=== PATIENT | female | born 1980 | race Caucasian/White ===

== ENCOUNTER 2023-11-24 12:49 | Outpatient (OUT) | payer OTHER, SELFPAY ==
--- NOTE | 2023-11-24 12:53 | MM_ITS ---
Patient Name: YENNIFER DUBOSE MR#: [id number] : 1980 Exam Date: 11/24/2023 Ordering Doctor: DR GUILLERMO NEAL RADIOLOGY REPORT PROCEDURE: MM TOMOSYNTHESIS SCREENING BI COMPARISON: None. INDICATIONS: Screening Calculator Name NCI Breast Cancer Risk Assessment Tool 5 Year Breast Cancer Risk 0.80% Lifetime Breast Cancer Risk 13.50% Personal Breast Cancer No Personal Ovarian Cancer No Treatments None Family Cancers None LOCATION: [facility] BREAST COMPOSITION: Heterogeneously dense,which may obscure small masses. FINDINGS: DIAGNOSTIC CATEGORY 0--INCOMPLETE: NEED ADDITIONAL IMAGING EVALUATION. Breasts are medium in size.Scattered benign-appearing calcifications are present. Scattered benign-appearing lymph nodes are present. RIGHT BREAST: No significant suspicious finding. LEFT BREAST: 1.6 x 1.3 cm lobular circumscribed mass identified in the lower inner quadrant of the left posterior breast. Spot compression and ultrasound follow-up is recommended for further evaluation. RECOMMENDATIONS: ADDITIONAL MAMMOGRAPHIC VIEWS REQUIRED: LEFT BREAST - compression ULTRASOUND: LEFT BREAST PLEASE NOTE: A NORMAL MAMMOGRAM DOES NOT EXCLUDE THE POSSIBILITY OF BREAST CANCER. A CLINICALLY SUSPICIOUS PALPABLE LUMP SHOULD BE BIOPSIED. Dictated by: Pal Richards MD on 11/24/2023 at 15:02 Approved by: Pal Richards MD on 11/24/2023 at 15:04
== END 2023-11-24 12:50 | disposition home or self-care (01) ==
LOC: MAMMO 12:49
PROVIDERS: PCP Physician Assistant; Visit Provider Physician Assistant
DX: Z12.31 Encounter for screening mammogram for malignant neoplasm of breast (principal); N63.24 Unspecified lump in the left breast, lower inner quadrant
CPT/HCPCS: 77063; 77067

== ENCOUNTER 2023-12-07 12:51 | Outpatient (OUT) | payer OTHER, SELFPAY ==
--- NOTE | 2023-12-07 08:47 | MM_ITS ---
Patient Name: YENNIFER DUBOSE MR#: [id number] : 1980 Exam Date: 12/07/2023 Ordering Doctor: DR GUILLERMO NEAL CORRECTION (changed mammo to LT.) Corrected on: 12/17/2023; RADIOLOGY REPORT PROCEDURE: MM DIAGNOSTIC MAMMO UNILAT LT, 12/07/2023, 11:58 US BREAST LT LIMITED, 12/07/2023, 13:21 COMPARISON: MM TOMOSYNTHESIS SCREENING BI, 11/24/2023. INDICATIONS: Abnormality Of Left Breast On Screening Mammogram R92.8 Calculator Name NCI Breast Cancer Risk Assessment Tool 5 Year Breast Cancer Risk 0.80% Lifetime Breast Cancer Risk 13.50% Personal Breast Cancer No Personal Ovarian Cancer No Treatments None Family Cancers None LOCATION: [facility] BREAST COMPOSITION: The breasts are heterogeneously dense,which may obscure small masses. FINDINGS: DIAGNOSTIC CATEGORY 4--SUSPICIOUS FOR MALIGNANCY. FINDING DOES NOT EXHIBIT CLASSIC FINDINGS OF BREAST CANCER: LEFT BREAST: Spot magnification views demonstrate a lobular 1.6 cm mass within the lower-inner quadrant. Ultrasound evaluation demonstrates a 1.4 x 1.3 x 1.1 cm lobular heterogeneous shadowing mass at the 7 o'clock position, 5.3 cm from the nipple. Ultrasound-guided tissue sampling is recommended. RECOMMENDATIONS: ULTRASOUND-GUIDED CORE BIOPSY: LEFT BREAST PLEASE NOTE: A NORMAL MAMMOGRAM DOES NOT EXCLUDE THE POSSIBILITY OF BREAST CANCER. A CLINICALLY SUSPICIOUS PALPABLE LUMP SHOULD BE BIOPSIED. Dictated by: Kamran Johnston M.D. on 12/07/2023 at 13:35 Approved by: Kamran Johnston M.D. on 12/07/2023 at 13:37 Dictated by: Kamran Johnston M.D. on 12/17/2023 at 09:41 Approved by: Kamran Johnston M.D. on 12/17/2023 at 09:41
--- NOTE | 2023-12-07 12:53 | US_ITS ---
Patient Name: YENNIFER DUBOSE MR#: [id number] : 1980 Exam Date: 12/07/2023 Ordering Doctor: DR GUILLERMO NEAL CORRECTION (changed mammo to LT.) Corrected on: 12/17/2023; RADIOLOGY REPORT PROCEDURE: MM DIAGNOSTIC MAMMO UNILAT LT, 12/07/2023, 11:58 US BREAST LT LIMITED, 12/07/2023, 13:21 COMPARISON: MM TOMOSYNTHESIS SCREENING BI, 11/24/2023. INDICATIONS: Abnormality Of Left Breast On Screening Mammogram R92.8 Calculator Name NCI Breast Cancer Risk Assessment Tool 5 Year Breast Cancer Risk 0.80% Lifetime Breast Cancer Risk 13.50% Personal Breast Cancer No Personal Ovarian Cancer No Treatments None Family Cancers None LOCATION: [facility] BREAST COMPOSITION: The breasts are heterogeneously dense,which may obscure small masses. FINDINGS: DIAGNOSTIC CATEGORY 4--SUSPICIOUS FOR MALIGNANCY. FINDING DOES NOT EXHIBIT CLASSIC FINDINGS OF BREAST CANCER: LEFT BREAST: Spot magnification views demonstrate a lobular 1.6 cm mass within the lower-inner quadrant. Ultrasound evaluation demonstrates a 1.4 x 1.3 x 1.1 cm lobular heterogeneous shadowing mass at the 7 o'clock position, 5.3 cm from the nipple. Ultrasound-guided tissue sampling is recommended. RECOMMENDATIONS: ULTRASOUND-GUIDED CORE BIOPSY: LEFT BREAST PLEASE NOTE: A NORMAL MAMMOGRAM DOES NOT EXCLUDE THE POSSIBILITY OF BREAST CANCER. A CLINICALLY SUSPICIOUS PALPABLE LUMP SHOULD BE BIOPSIED. Dictated by: Kamran Johnston M.D. on 12/07/2023 at 13:35 Approved by: Kamran Johnston M.D. on 12/07/2023 at 13:37 Dictated by: Kamran Johnston M.D. on 12/17/2023 at 09:41 Approved by: Kamran Johnston M.D. on 12/17/2023 at 09:41
== END 2023-12-07 12:52 | disposition home or self-care (01) ==
LOC: MAMMO 12:51
PROVIDERS: PCP Physician Assistant; Visit Provider Physician Assistant
DX: R92.8 Other abnormal and inconclusive findings on diagnostic imaging of breast (principal); N63.24 Unspecified lump in the left breast, lower inner quadrant
CPT/HCPCS: 76642; 77065

== ENCOUNTER 2023-12-15 13:16 | Day surgery (SDC) | payer OTHER, SELFPAY ==
--- NOTE | 2023-12-15 13:22 | US_ITS ---
[address] [address] Patient Name: YENNIFER DUBOSE MRN: [id number] date: 1980 Sex: F Assigned Patient Location: US Current Patient Location: Accession/Order Number: [id number] Exam Date: 12/15/2023 13:23 Report Date: 12/15/2023 15:14 At the request of: GUILLERMO WHITLEY Procedure: US breast vac bx w/ clip LT EXAM: US breast vac bx w/ clip LT HISTORY: Left Breast Mass COMPARISON: Ultrasound breast left Limited 12/07/2023, mammography 12/07/2023, 11/24/2023 TECHNIQUE: After obtaining informed consent, ultrasound-guided biopsy was performed in the usual sterile manner. The location of the biopsy was then marked as indicated below. FINDINGS: Specimen #, Location: 3 core samples, left breast 7:00 hypoechoic lobular heterogeneous, 1.3 cm mass Biopsy Needle: 13 gauge vacuum core biopsy needle. Marker(s): A single metallic marker was placed in the appropriate targeted location. Medication: Buffered 1% Lidocaine with epinephrine administered locally. Complications: None. Pathology: Pending. US/US breast vac bx w/ clip LT IMPRESSION: 1. Uneventful ultrasound-guided breast biopsy. 2. Pathology results are pending. An addendum to this report will be provided after pathology results are available. Electronically authenticated by: TIFFANY ABARCA Date: 12/15/2023 15:14
--- NOTE | 2023-12-15 13:22 | MM_ITS ---
Patient Name: YENNIFER DUBOSE MR#: [id number] : 1980 Exam Date: 12/15/2023 Ordering Doctor: DR GUILLERMO NEAL This report includes an Addendum and supersedes previous reports for this exam. RADIOLOGY REPORT PROCEDURE: MM POST BIOPSY LT COMPARISON: MM DIAGNOSTIC MAMMO UNILAT RT, 12/07/2023. MM TOMOSYNTHESIS SCREENING BI, 11/24/2023. INDICATIONS: Left Breast Mass BREAST COMPOSITION: The breasts are heterogeneously dense,which may obscure small masses. FINDINGS: Post-Procedure Mammogram for Marker Placement BIOPSY MARKER: A metallic marker has been placed in the targeted location within the lower-inner quadrant of the left breast. BREAST FINDINGS: Expected post biopsy findings. RECOMMENDATIONS: Dictated by: Kamran Johnston M.D. on 12/15/2023 at 15:50 Approved by: Kamran Johnston M.D. 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 FINDINGS: DIAGNOSTIC CATEGORY 3--PROBABLY BENIGN FINDING. THE FOLLOWING FINDING(S) HAS A HIGH PROBABILITY OF A BENIGN ETIOLOGY: RECOMMENDATIONS: SHORT TERM FOLLOW-UP DIAGNOSTIC MAMMOGRAM LEFT BREAST IN 6 MONTHS. Dictated by: Kamran Johnston M.D. on 12/24/2023 at 15:10 Approved by: Kamran Johnston M.D. on 12/24/2023 at 15:11
--- OUTSIDE RECORDS SUMMARY | 2023-12-15 13:24 | XMS_ITS | CCD ---
Author Organization [facility] Care Team Providers Care Chief Ii Dispatcher Name Role Phone DR JM BOTELLO Consulting Unavailable AYAN, DR ONEAL Attending Unavailable DR JM BOTELLO Admitting Unavailable Julianne Stone Unavailable Penny Thornton Unavailable Julianne Flood Unavailable GUILLERMO WHITLEY Attending Unavailable Medications Current Medications Medication Drug Class(es) Dates Sig (Normalized) Sig (Original) [id number] 200 actuat albuterol 0.09 mg/actuat metered dose inhaler (1 source) beta2-Adrenergic Agonist Start: 08-07-2021 take 2 puff(s) by inhalation four times daily as needed Albuterol Sulfate HFA 108 (90 Base) MCG/ACT 2 puffs Inhalation qid prn Jul, Active amoxicillin 500 mg oral capsule (1 source) Penicillin-class Antibacterial Start: 06-01-2021 take 1 capsule by mouth every eight hours Amoxicillin 500 MG 1 capsule Orally every 8 hrs for 5 day(s) May, Active azithromycin 250 mg oral tablet (1 source) Macrolide Antimicrobial Start: 08-07-2021 Zithromax 250 MG 2 tablet on the first day, then 1 tablet daily for 4 days Orally Once a day for 5 day(s) Jul, Active brompheniramine maleate 0.4 mg/ml / dextromethorphan hydrobromide 2 mg/ml / pseudoephedrine hydrochloride 6 mg/ml oral solution (1 source) alpha-Adrenergic Agonist, Uncompetitive U-qwpftz-H-aspartat e Receptor Antagonist, Sigma-1 Agonist Start: 11-29-2021 take 10 mL by mouth every six hours Pseudoeph-Bromph en-DM 30-2-10 MG/5ML 10 mL Orally every 6 hours for 5 days Nov, Active ibuprofen 800 mg oral tablet (1 source) Nonsteroidal Anti-inflammatory Drug Start: 06-01-2021 take 1 tablet by mouth three times daily at mealtime as needed Ibuprofen 800 MG 1 tablet with food or milk as needed Orally Three times a day for 7 days May, Active lidocaine hydrochloride 20 mg/ml mucous membrane topical solution (1 source) Antiarrhythmic, Amide Local Anesthetic Start: 06-01-2021 take 15 mL by mouth every three hours as needed Lidocaine Viscous HCl 2 % 15 ml as needed Mouth/Throat every 3 hrs for 2 days May, Active oseltamivir 75 mg oral capsule (1 source) Neuraminidase Inhibitor Start: 11-29-2021 take 1 capsule by mouth every twelve hours Oseltamivir Phosphate 75 MG 1 capsule Orally Twice a day for 5 day(s) Nov, Active predniSONE 20 mg oral tablet (1 source) Start: 08-07-2021 take 1 tablet by mouth every twelve hours predniSONE 20 MG 1 tablet Orally bid for 5 day(s) Jul, Active Problems Active Problems Problem Classification Problem Date Documented Da te Episodic/Chronic Other screening for suspected conditions (not mental disorders or infectious disease) (4 sources) Encounter for screening for malignant neoplasm of cervix; Translations: [ENC SCREENING MALIG NEOPLASM CERV] Onset: 02-14-2021 Episodic Past or Other Problems Problem Classification Problem Date Documented Date Episodic/Chronic Immunizations and screening for infectious disease (3 sources) Encounter for screening for human papillomavirus (HPV); Translations: [Contact with and (suspected) exposure to other viral communicable diseases] Onset: 02-22-2021 Resolved: 11-29-2021 Episodic Skull and face fractures (1 source) Fracture of tooth (traumatic), initial encounter for closed fracture Onset: 06-01-2021 Resolved: 06-01-2021 Episodic Unclassified (1 source) Cough R05.9 Onset: 11-29-2021 Resolved: 11-29-2021 Viral infection (1 source) COVID-19 Onset: 08-07-2021 Resolved: 08-07-2021 Results Test Name Value Interpretation Reference Range Facil ity COVID Quick Testingon 2021 Result Negative [facility] Other Quick Fluon 11-29-2021 FLUAV Ab CF (S) [Titer] Negative [facility] Other FLUBV Ab CF (S) [Titer] Negative [facility] Other COVID Quick Testingon 2020 Result Positive [facility] Other Quick Fluon 08-07-2021 FLUAV Ab CF (S) [Titer] Negative [facility] Other FLUBV Ab CF (S) [Titer] Negative [facility] Other PAP ACOG PANEL 2: 30 to 65on 02-19-2021 . . Normal [facility] Comment on above: Result Comment: Performed at: WB Performed By: #### [id number] #### [facility] [address] [place] [address] Glennaubrey Bojorquez Age Gdln ACOG Testing 30-65 Normal [facility] Comment on above: Performed By: #### [id number] #### [facility] [address] [place] [address] Glenn Bojorquez DIAGNOSIS: Comment Normal [facility] Comment on above: Result Comment: NEGATIVE FOR INTRAEPITHE LIAL LESION OR MALIGNANCY. Performed at: WB Performed By: #### [id number] #### [facility] [address] [place] [address] Glenn Bojorquez HPV Aptima Negative Normal Negative [facility] Comment on above: Result Comment: This nucleic acid amplif ication test detects fourteen high-risk HPV types (16,18,31,33,35,39,45,51,52,56,58,59,66,68) without differentiation. Performed at: =G Performed By: #### [id number] #### [facility] [address] [place] [address] Glenn Bojorquez Methodology: Comment Normal [facility] Comment on above: Result Comment: This liquid based ThinPr ep(R) pap test was screened with the use of an image guided system. Performed at: WB Performed By: #### [id number] #### [facility] [address] [place], [place] [id number] Glenn Mejiaen Note: Comment Normal [facility] Comment on above: Result Comment: The Pap smear is a scree juana test designed to aid in the detection of premalignant and malignant conditions of the uterine cervix. It is not a diagnostic procedure and should not be used as the sole means of detecting cervical cancer. Both false-positive and false-negative reports do occur. . Performed at: WB Performed By: #### [id number] #### [facility] [address] [place] [address] Glenn Bojorquez Performed by: Comment Normal [facility] Comment on above: Result Comment: Sharlene uFng, [employer] nologist (ASCP) Performed at: WB Performed By: #### [id number] #### [facility] [address] [place] [address] Glenn Bojorquez Specimen adequacy: Comment Normal [facility] Comment on above: Result Comment: Satisfactory for evaluat ion. Endocervical and/or squamous metaplastic cells (endocervical component) are present. Performed at: WB Performed By: #### [id number] #### [facility] [address] [place] [address] Glennaubrey Bojorquez Vital Signs Date Time Vital Sign Value Performing Clinician Facility 11-29-2021 10:10-0400 Body height 154.94 cm Julianne Flood Other [employer] [facility] [employer] Other 11-29-2021 10:10-0400 Body mass index (BMI) [Ratio] 32.12 kg/m2 Julianne Flood Other [facility] Other 11-29-2021 10:10-0400 Body temperature 96.8 [degF] Julianne Flood Other [facility] Other 11-29-2021 10:10-0400 Body weight 77.11 kg Julianne Flood Other [facility] Other 11-29-2021 10:10-0400 SaO2% (BldA) [Mass fraction] 96 % Julianne Flood Other [facility] Other 08-07-2021 10:15-0500 Body height 154.94 cm Penny Thornton Other [facility] Other 08-07-2021 10:15-0500 Body mass index (BMI) [Ratio] 30.23 kg/m2 Penny Hurtadomond Other [facility] Other 08-07-2021 10:15-0500 Body temperature 98.1 [degF] Penny Hurtadomond Other [facility] Other 08-07-2021 10:15-0500 Body weight 72.58 kg Penny Thornton Other [facility] Other 08-07-2021 10:15-0500 Respiratory rate 18 /min Penny Thornton Other [facility] Other 08-07-2021 10:15-0500 SaO2% (BldA) [Mass fraction] 97 % Penny Thornotn Other [facility] Other 06-01-2021 15:20-0400 Body height 154.94 cm Julianne Ginty Other [facility] Other 06-01-2021 15:20-0400 Body mass index (BMI) [Ratio] 33.82 kg/m2 Julianne Ginty Other [facility] Other 06-01-2021 15:20-0400 Body temperature 98.2 [degF] Julianne Ginty Other [facility] Other 06-01-2021 15:20-0400 Body weight 81.19 kg Julianne Ginty Other [facility] Other 06-01-2021 15:20-0400 Diastolic blood pressure 86 mm[Hg] Julianne Ginty Other [facility] Other 06-01-2021 15:20-0400 Respiratory rate 18 /min Julianne Ginty Other [facility] Other 06-01-2021 15:20-0400 SaO2% (BldA) [Mass fraction] 99 % Julianne Ginty Other [facility] Other 06-01-2021 15:20-0400 Systolic blood pressure 143 mm[Hg] Julianne Ginty Other [facility] Other Encounters Encounter Date Encounter Type Care Provider Facility Start: 11-03-2023 End: 11-04-2023 ambulatory GUILLERMO WHITLEY Not Available Start: 11-29-2021 End: 11-29-2021 ambulatory Julianne Flood Other [facility] Other Start: 11-29-2021 Office outpatient vi sit 25 minutes Julianne Flood [facility] Start: 08-07-2021 End: 08-07-2021 ambulatory Penny Thornton Other [facility] Other Start: 08-07-2021 Office outpatient vi sit 15 minutes Penny Hillary [facility] Start: 06-01-2021 End: 06-01-2021 ambulatory Julianne Ginty Other [facility] Other Start: 06-01-2021 Office outpatient ne w 20 minutes Julianne Ginty [facility] Start: 02-14-2021 End: 02-14-[address] JM BOTELLO Facility:[facility] Payers Date Payer Category Payer Unknown [id number] 1980 Unknown [id number] 1980 Unknown [id number] 1957 Unknown [id number] Social History Date Type Detail Facility Sex Assigned At [facility] Other Evaluation note 11-29-2021 Note Date & Type Note Facility 11-29-2021 Evaluation note Encounter Date Diagnosis Assessment Notes Nov, Cough (ICD-10 - R05.9) Nov, Exposure to influenza (ICD-10 - Z20.828) Advised patient that Influenza A/B test and rapid COVID antigen test was negative in office. Due to known exposure, will send in rx of Tamiflu to use as directed, reviewed potential side effects of medications. Will also send in rx of Bromfed to use as directed. Encouraged supportive care, including Tylenol/Motrin as needed for body aches/fever, increase fluids and rest, use of cool mist humidifier. Follow-up with PCP to advise of positive result and further management need. Immediate eval if respiratory distress, SOB, difficulty breathing, severe headache and neck pain/stiffness, rash, abdominal pain, N/V, poor PO intake, dehydration (should be urinating every 3-6 hours) lethargy, fevers that do not reduce with antipyretic, inconsolable or other concerning symptoms, or any other concerning symptoms as reviewed on patient education handout. Patient verbalizes understanding and is agreeable to treatment plan. Patient left in stable condition. [facility] Other Evaluation note 08-07-2021 Note Date & Type Note Facility 08-07-2021 Evaluation note Encounter Date Diagnosis Assessment Notes Jul, Contact with and (suspected) exposure to other viral communicable diseases (ICD-10 - Z20.828) Jul, COVID-19 (ICD-10 - U07.1) Drink plenty fluids and get plenty of rest. Take the Zithromax and prednisone as prescribed until gone. Use the albuterol inhaler as prescribed as needed for cough or shortness of breath. Continue home medications as prescribed. Take Tylenol or Motrin for aches pains or fevers. You must quarantine until August 10, 2021. If you continue to be symptomatic after that you must wear a mask when out and about for the next 5 days. If you continue to run a fever after the first 5 days of your quarantine you must quarantine for 5 more days. Follow-up with your family physician if no improvement in 2 to 3 days Jul, Other Additional time spent conducting pre-visit phone call, screening for symptoms, instructions on social distancing, application and removal of PPE, and cleaning of examination room, equipment and supplies was preformed. Patient education given for testing methodology and results. Patient care instructions given in writting by [facility] document. [facility] Other Evaluation note 06-01-2021 Note Date & Type Note Facility 06-01-2021 Evaluation note Encounter Date Diagnosis Assessment Notes May, Closed fracture of tooth, initial encounter (ICD-10 - S02.5XXA) Discussed diagnosis with patient and instructed to start ATB immediately. Reviewed allergies and recent antibiotic use. Warm salt water gargles. Ice to swelling and/or warm compresses prn for pain, ice for 10-20 minutes at a time, ensure thin cloth barrier between skin. May use rx of Ibuprofen as needed, viscous Lidocaine as needed. Advised to call dentist today to get follow up appointment. Stressed to patient that she needs to follow up with dentist LUBA due to risk of infection spreading into bone. Discussed S/S of worsening infection and instructed she should seek immediate evaluation in the ER if she develops any. Seek re-evaluation if no improvement after 48 hours on ATB. Patient verbalized understanding and agrees with treatment plan [facility] Other History general Narrative - Reported Note Date & Type Note Facility History general Narrative - Reported Type Surgical History x1 Hospitalization History see above [facility] Other History general Narrative - Reported Note Date & Type Note Facility History general Narrative - Reported Type Surgical History x1 Surgical History wisdom teeth Surgical History lt shoulder Hospitalization History see above [facility] Other Summary Purpose Family History No Family History Records FoundNo Family History Records Found Advance Directives No Advanced Directives Records FoundNo Advanced Directives Records Found Additional Source Comments INFORMATION SOURCE (unrecogn ized section and content) DATE CREATED AUTHOR 02/23/2021 [facility] DATE CREATED AUTHOR AUTHOR'S ORGANIZ ATION 11/07/2023 [facility] EPIC REASON FOR VISIT (unrecogniz ed section and content) TOOTH PAIN#2 RED JEEP, HOARS ENESS, SORE THROAT, EAR PAIN, CONGESTIONBURGUNDY JEEP, COUGH, CONGESTION, SON POSTIVIE FOR FLUE FOR RECORDS PERTAINING TO PATIENTS WHO ARE OR HAVE BEEN ENROLLED IN A CHEMICAL DEPENDENCY/SUBSTANCEABUSE PROGRAM, SOME INFORMATION MAY BE OMITTED. This clinical summary was aggregated from multiple sources. Caution should be exercised in using it in the provision of clinical care. This summary normalizes information from multiple sources, and as a consequence, information in this document may materially change the coding, format and clinical context of patient data. In addition, data may be omitted in some cases. CLINICAL DECISIONS SHOULD BE BASED ON THE PRIMARY CLINICAL RECORDS. [employer] provides no warranty or guarantee of the accuracy or completeness of information in this document.
[2023-12-15 13:30] VITALS: BP 148/88; PULSE 77; O2SAT 98
[2023-12-15] MEDS: LIDOCAINE HCL/EPINEPHRINE 10 ML, SODIUM BICARBONATE 1 MEQ INJ (14:15)
[2023-12-15] MEDS: LIDOCAINE HCL 10 ML, SODIUM BICARBONATE 1 MEQ INJ (14:15)
--- NOTE | 2023-12-15 14:55 | SUR.PREOP ---
12/07/23 Pt instructed on procedure, date, time, and prep.
== END 2023-12-15 14:40 | disposition home or self-care (01) ==
LOC: US 13:16
PROVIDERS: Radiology Diagnostic Radiology; PCP Physician Assistant; Visit Provider Physician Assistant
DX: D24.2 Benign neoplasm of left breast (principal)
CPT/HCPCS: 19083; 77065; 88305; 88341; 88342

== ENCOUNTER 2025-01-03 15:50 | Outpatient (OUT) | payer OTHER, SELFPAY ==
--- NOTE | 2025-01-03 15:54 | MM_ITS ---
Patient Name: YENNIFER DUBOSE MR#: [id number] : 1980 Exam Date: 01/03/2025 Ordering Doctor: DR GUILLERMO NEAL RADIOLOGY REPORT PROCEDURE: MM TOMOSYNTHESIS SCREENING BI COMPARISON: MM POST BIOPSY LT, 12/15/2023. MM DIAGNOSTIC MAMMO UNILAT LT, 12/07/2023. MM TOMOSYNTHESIS SCREENING BI, 11/24/2023. INDICATIONS: Screening Calculator Name NCI Breast Cancer Risk Assessment Tool 5 Year Breast Cancer Risk 1.40% Lifetime Breast Cancer Risk 16.10% Personal Breast Cancer No Personal Ovarian Cancer No Treatments None Family Cancers None LOCATION: [facility] BREAST COMPOSITION: There are scattered areas of fibroglandular density. FINDINGS: RIGHT BREAST: No significant suspicious finding. LEFT BREAST: No significant suspicious finding. There is a similar focal asymmetry of the left breast without a complete biopsy clip. This is unchanged . DIAGNOSTIC CATEGORY 2--BENIGN FINDING: RECOMMENDATIONS: ROUTINE MAMMOGRAM AND CLINICAL EVALUATION IN 12 MONTHS. PLEASE NOTE: A NORMAL MAMMOGRAM DOES NOT EXCLUDE THE POSSIBILITY OF BREAST CANCER. A CLINICALLY SUSPICIOUS PALPABLE LUMP SHOULD BE BIOPSIED. Dictated by: Jagdish Oakley MD on 01/04/2025 at 08:30 Approved by: Jagdish Oakley MD on 01/04/2025 at 08:33
--- OUTSIDE RECORDS SUMMARY | 2025-01-03 18:45 | XMS_ITS | CCD ---
Author Organization [facility] Inform ion Partnership [facility] Care Team Providers Care Cylinder Block Mechanic Name Role Phone DR JM BOTELLO Consulting Unavailable DR JM BOTELLO Attending Unavailable DR JM BOTELLO Admitting Unavailable Julianne Stone Unavailable Penny Thornton Unavailable Julianne Flood Unavailable Reinaldo CATALAN, Filemon Hooks Primary Care Provider MARYELLEN WHITLEY Attending Unavailable Medications Current Medications Medication Drug Class(es) Dates Sig (Normalized) Sig (Original) [id number] 200 actuat albuterol 0.09 mg/actuat metered dose [...] 8 hrs for 5 day(s) May, Active amoxicillin 875 mg / clavulanate 125 mg oral tablet (4 sources) Penicillin-class Antibacterial Start: 11-15-2024 End: 12-31-2024 take 1 tablet by mouth in the morning amoxicillin-clav ulanate (Augmentin) 875-125 MG tablet Indications: Strep throat Take 1 tablet (875 mg) by mouth in the morning and 1 tablet (875 mg) in the evening. Take with meals. Do all this for 10 days. 20 tablet 12/21/2024 12/31/2024 Active azithromycin 250 mg oral tablet (1 source) Macrolide Antimicrobial Start: 08-07-2021 Zithromax 250 MG 2 tablet on the first day, then 1 tablet daily for 4 days Orally Once a day for 5 day(s) Jul, Active brompheniramine maleate 0.4 mg/ml / dextromethorphan hydrobromide 2 mg/ml / pseudoephedrine hydrochloride 6 mg/ml oral solution (1 source) alpha-Adrenergic Agonist, Uncompetitive H-rebeko-M-aspartate Receptor Antagonist, Sigma-1 Agonist Start: 11-29-2021 take 10 mL by mouth every six hours Pseudoeph-Bromph en-DM 30-2-10 MG/5ML 10 mL Orally every 6 hours for 5 days Nov, Active cetirizine hydrochloride 10 mg oral tablet (2 sources) Histamine-1 Receptor Antagonist take 1 tablet by mouth at bedtime cetirizine (ZyrTEC) 10 MG tablet Take 10 mg by mouth at bedtime Active dextromethorphan hydrobromide 15 mg / guaiFENesin 400 mg / pseudoephedrine hydrochloride 60 mg oral tablet (2 sources) alpha-Adrenergic Agonist, Uncompetitive U-rzzber-E-aspartate Receptor Antagonist, Sigma-1 Agonist Start: 11-03-2023 take 1 tablet by mouth every six hours pseudoephedrine- DM-GG 60-15-400 MG tablet Indications: Acute non-recurrent maxillary sinusitis Take 1 tablet by mouth every 6 (six) hours if needed (Cough) 28 tablet 11/03/2023 Active fluticasone propionate 0.05 mg/actuat metered dose nasal spray (2 sources) Corticosteroid take 1 spray(s) nasal route once daily fluticasone (Flonase) 50 MCG/ACT nasal spray Administer 1 spray into each nostril Daily Shake gently. Before first use, prime pump. After use, clean tip and replace cap. Active ibuprofen 800 mg oral tablet (1 [...] 3 hrs for 2 days May, Active Multiple Vitamin (multivitamin) capsule (2 sources) take 1 capsule by mouth once daily Multiple Vitamin (multivitamin) capsule Take 1 capsule by mouth Daily Active oseltamivir 75 mg oral capsule (1 [...] Orally bid for 5 day(s) Jul, Active Completed/Discontinued Medications Medication Drug Class(es) Dates Sig (Normalized) Sig (Original) dextromethorphan hydrobromide 3 mg/ml / promethazine hydrochloride 1.25 mg/ml oral solution (2 sources) Phenothiazine, Uncompetitive S-akmgvg-P-aspartat e Receptor Antagonist, Sigma-1 Agonist Start: 11-15-2024 End: 12-21-2024 promethazine-dext romethorphan (Phenergan-DM) 6.25-15 MG/5ML syrup Take 5 mL every 4 hours by oral route as needed for 5 days, for for cough. Maximum 30ml/24hours.. 11/15/2024 12/21/2024 Discontinued (Therapy completed) Misc Natural Products (Para-Rory) capsule (2 sources) End: 12-21-2024 take 1 capsule by mouth in the morning Misc Natural Products (Para-Rory) capsule Take 1 capsule by mouth in the morning. 12/21/2024 Discontinued Problems Active Problems Problem Classification Problem Date Documented Da te Episodic/Chronic Disorders of lipid metabolism (2 sources) Pure hypercholesterole ki; Translations: [Pure hypercholesterole ki, unspecified] Onset: 03-03-2023 03-03-2023 Chronic Other non-traumatic joint disorders (2 sources) Polyarthropathy; Translations: [Polyarthritis, unspecified] Onset: 03-03-2023 03-03-2023 Chronic Other screening for suspected conditions (not mental disorders or infectious disease) (8 sources) Encounter for screening for malignant neoplasm of cervix; Translations: [Patient encounter status] Onset: 02-14-2021 Episodic Other upper respiratory disease (2 sources) Allergic rhinitis due to pollen; Translations: [Allergic rhinitis due to pollen] Onset: 03-03-2023 03-03-2023 Chronic Other upper respiratory infections (4 sources) Sore throat symptom; Translations: [Acute pharyngitis, unspecified] 12-21-2024 Episodic Past or Other Problems Problem Classification Problem Date Documented Date Episodic/Chronic Cancer of other female genital organs (2 sources) Atypical squamous cells of undetermined significance on vaginal Papanicolaou smear; Translations: [Atypical squamous cells of undetermined significance on cytologic smear of vagina (ASC-US)] Onset: 03-03-2023 03-03-2023 Episodic Immunizations and screening for infectious disease (3 sources) Encounter for screening for human papillomavirus (HPV); Translations: [Contact with and (suspected) exposure to other viral communicable diseases] Onset: 02-22-2021 Resolved: 11-29-2021 Episodic Nonmalignant breast conditions (2 sources) Lump in lower outer quadrant of left breast; Translations: [Unspecified lump in the left breast, lower outer quadrant] Onset: 12-08-2023 12-08-2023 Episodic Skull and face fractures (1 source) Fracture of tooth (traumatic), initial encounter for closed fracture Onset: 06-01-2021 Resolved: 06-01-2021 Episodic Unclassified (1 source) Cough R05.9 Onset: 11-29-2021 Resolved: 11-29-2021 Unclassified (2 sources) Cancer cervix screening status 12-21-2024 Viral infection (1 source) COVID-19 Onset: 08-07-2021 Resolved: 08-07-2021 Results Test Name Value Interpretation Reference Range Facility S. pyogenes DNA HERNANDEZ+probe No m (Unsp spec)on 12-21-2024 Interpretation and review of laboratory results Abnormal [facility] RES[facility] Positive [facility] COVID Quick Testingon 2021 Result Negative [facility] Other Quick Fluon 11-29-2021 FLUAV Ab CF (S) [Titer] Negative [facility] Other FLUBV Ab CF (S) [Titer] Negative [employer] [facility] Other COVID Quick Testingon 2020 Result Positive [employer] [facility] Other Quick Fluon 08-07-2021 FLUAV Ab CF (S) [Titer] Negative [employer] [facility] Other FLUBV Ab CF (S) [Titer] Negative [employer] [facility] Other PAP ACOG PANEL 2: 30 to 65on 02-19-[address] [facility] Comment on above: Result Comment: Perf ormed at: WB Performed By: #### [id number] #### [facility] [address] [place] [address] Glenn Bojorquez Age Gdln ACOG Testing 30-65 [facility] Comment on above: Performed By: #### [id number] #### [facility] [address] [place] [address] Glenn Bojorquez DIAGNOSIS: Comment Normal [facility] Comment on above: Result Comment: NEGA TIVE FOR INTRAEPITHELIAL LESION OR MALIGNANCY. Performed at: WB Performed By: #### [id number] #### [facility] [address] [address] Glenn Bojorquez HPV Aptima Negative Normal Negative [facility] Comment on above: Result Comment: This nucleic acid amplification test detects fourteen high-risk HPV types (16,18,31,33,35,39,45,51,52,56,58,59,66,68) without differentiation. Performed at: =G Performed By: #### [id number] #### [facility] [address] [address] Glenn Bojorquez Methodology: Comment Normal [facility] Comment on above: Result Comment: This liquid based ThinPrep(R) pap test was screened with the use of an image guided system. Performed at: WB Performed By: #### [id number] #### [facility] [address] [place] [address] Glenn Bojorquez Note: Comment Normal [facility] Comment on above: Result Comment: The Pap smear is a screening test designed to aid in the detection of premalignant and malignant conditions of the uterine cervix. It is not a diagnostic procedure and should not be used as the sole means of detecting cervical cancer. Both false-positive and false-negative reports do occur. . Performed at: WB Performed By: #### [id number] #### [facility] [address] [place], [place] [address] Glenn Bojorquez Performed by: Comment Normal [facility] Comment on above: Result Comment: Niesha Fung, Sports Medicine Trainer (ASCP) Performed at: WB Performed By: #### [id number] #### [facility] [address] [place], [place] [address] Glenn Bojorquez Specimen adequacy: Comment Normal [facility] Comment on above: Result Comment: Sati sfactory for evaluation. Endocervical and/or squamous metaplastic cells (endocervical component) are present. Performed at: WB Performed By: #### [id number] #### [facility] [address] [place], [place] [address] Glenn Bojorquez Vital Signs Date Time Vital Sign Value Performing Clinician Facility 12-21-2024 17:07-0400 Body height 154.9 cm Maryellen Hemmer PA Work Phone: [facility] 12-21-2024 17:07-0400 Body mass index (BMI) [Ratio] 30.31 kg/m2 Maryellen Hemmer PA Work Phone: [facility] 12-21-2024 17:07-0400 Body temperature 100.2 [degF] Maryellen Hemmer PA Work Phone: [facility] 12-21-2024 17:07-0400 Body weight 72.76 kg Maryellen Hemmer PA Work Phone: [facility] 12-21-2024 17:07-0400 Diastolic blood pressure 78 mm[Hg] Maryellen Hemmer PA Work Phone: [facility] 12-21-2024 17:07-0400 Heart rate 110 /min Maryellen Hemmer PA Work Phone: [facility] 12-21-2024 17:07-0400 Respiratory rate 16 /min Maryellen Hemmer PA Work Phone: [facility] [employer] 12-21-2024 17:07-0400 SaO2% (BldA) [Mass fraction] 98 % Maryellen Whitley PA Work Phone: [facility] [employer] 12-21-2024 17:07-0400 Systolic blood pressure 132 mm[Hg] Maryellen Whitley PA Work Phone: [facility] [employer] 11-29-2021 10:10-0400 Body height 154.94 cm Julianne Flood Other [facility] Other 11-29-2021 10:10-0400 Body mass index (BMI) [Ratio] 32.12 kg/m2 Julianne Flood Other [facility] [employer] Other 11-29-2021 10:10-0400 Body temperature 96.8 [degF] Julianne Flood Other [facility] [employer] Other 11-29-2021 10:10-0400 Body weight 77.11 kg Julianne Flood Other [facility] [employer] Other 11-29-2021 10:10-0400 SaO2% (BldA) [Mass fraction] 96 % Julianne DonorPro Other [facility] [employer] Other 08-07-2021 10:15-0500 Body height 154.94 cm Penny Thornton Other [facility] [employer] Other 08-07-2021 10:15-0500 Body mass index (BMI) [Ratio] 30.23 kg/m2 Penny Thornton Other [facility] [employer] Other 08-07-2021 10:15-0500 Body temperature 98.1 [degF] Penny Thornton Other [facility] [employer] Other 08-07-2021 10:15-0500 Body weight 72.58 kg Penny Thornton Other [facility] [employer] Other 08-07-2021 10:15-0500 Respiratory rate 18 /min Penny Thornton Other [facility] [employer] Other 08-07-2021 10:15-0500 SaO2% (BldA) [Mass fraction] 97 % Penny Thornton Other [facility] [employer] Other 06-01-2021 15:20-0400 Body height 154.94 cm Julianne Ginty Other [facility] [employer] Other 06-01-2021 15:20-0400 Body mass index (BMI) [Ratio] 33.82 kg/m2 Julianne Ginty Other [facility] [employer] Other 06-01-2021 15:20-0400 Body temperature 98.2 [degF] Julianne Ginty Other [facility] [employer] Other 06-01-2021 15:20-0400 Body weight 81.19 kg Julianne Ginty Other [facility] [employer] Other 06-01-2021 15:20-0400 Diastolic blood pressure 86 mm[Hg] Julianne Ginty Other [facility] [employer] Other 06-01-2021 15:20-0400 Respiratory rate 18 /min Julianne Ginty Other [facility] [employer] Other 06-01-2021 15:20-0400 SaO2% (BldA) [Mass fraction] 99 % Julianne Ginty Other [facility] [employer] Other 06-01-2021 15:20-0400 Systolic blood pressure 143 mm[Hg] Julianne Ginty Other [employer] Other Encounters Encounter Date Encounter Type Care Provider Facility Start: 12-21-2024 End: 12-21-2024 Office outpatient visit 15 minutes Maryellen NEAL Work Phone: [facility] Comment on above: Strep throat (Primar y Dx); Sore throat; Encounter for screening mammogram for malignant neoplasm of breast; Screening for malignant neoplasm of cervix Start: 12-21-2024 End: 12-21-2024 ambulatory MARYELLEN WHITLEY Not Available Start: 11-29-2021 End: 11-29-2021 ambulatory Julianne Flood Other [employer] Other Start: 11-29-2021 Office outpatient vi sit 25 minutes Julianne Flood [facility] Start: 08-07-2021 End: 08-07-2021 ambulatory Penny Hillary Other [employer] Other Start: 08-07-2021 Office outpatient vi sit 15 minutes Penny Hillary [facility] Start: 06-01-2021 End: 06-01-2021 ambulatory Julianne Ginty Other [employer] Other Start: 06-01-2021 Office outpatient ne w 20 minutes Julianne Ginty [facility] Start: 02-14-2021 End: 02-14-[address] JM BOTELLO Facility:[facility] Procedures Date Procedure Procedure Detail Performing Clinician Start: 12-21-2024 Iadna streptococcus group a amplified probe tq Maryellen NEAL Work Phone: Start: 12-07-2023 Mammography Maryellen NEAL Work Phone: Plan of Treatment Date Care Activity Detail Author Start: 09-01-2025 Influenza vaccination Influenz a Vaccine (Season Ended) [facility] Start: 12-21-2024 End: 02-20-2026 DBT Breast - bilateral screening Bilateral screening mammogram with tomosynthesis Imaging Routine Encounter for screening mammogram for malignant neoplasm of breast Expected: 12/21/2024, Expires: 02/20/2026 [facility] Work Phone: Comment on above: Expected: 12/21/2024 , Expires: 02/20/2026 Start: 12-06-2024 Screening for malignant neoplasm of breast Mammogram [facility] Start: 2012 Screening for malignant neoplasm of cervix [facility] Start: 2003 Screening for malignant neoplasm of cervix Pap Smear [facility] Immunizations Immunization Date Immunization Notes Care Provider Fa cili 12-14-2015 hepatitis B vaccine, adult dosage Maryellen NEAL Work Phone: [facility] 12-14-2015 influenza, seasonal, injectable Maryellen NEAL Work Phone: [facility] 12-14-2015 tetanus toxoid, redu jhoana diphtheria toxoid, and acellular pertussis vaccine, adsorbed Maryellen NEAL Work Phone: [facility] 12-14-2015 influenza virus vacc ine, unspecified formulation Maryellen NEAL Work Phone: [facility] Payers Date Payer Category Payer [facility] [id number] 2023 Unknown [id number] 1982 Unknown [id number] 1982 Unknown [id number] 1959 Unknown [id number] Social History Date Type Detail Facility Start: 12-21-2024 Sex Assigned At N [employer] Other Start: 11-03-2023 Tobacco smoking stat [facility] Never smoked tobacco [facility] Start: 11-03-2023 Tobacco use and exposure Smokeless tobacco non-user [facility] Start: 12-21-2024 Alcoholic beverage intake Ex-drinker (finding) [facility] Start: 12-21-2024 History of Social function [facility] Start: 1980 Sex assigned at Not on file [facility] Functional Status Date Assessment Result Facility 12-21-2024 Patient Health Quest ionnaire 2 item (PHQ-2) [Reported] [facility] History of Present illness Narrative 12-21-2024 [facility] Gentile - 12/21/2024 5:00 PM EDT Note Date & Type Note Facility 12-21-2024 History of Presen t illness Narrative Subjective Patient ID: Arabella Palm is a 44 y.o. female who presents for URI. Arabella is present today for evaluation of URI. Admits left ear pain off/on, sinus pressure, runny nose, post nasal drainage, tonsils hurt and has white patches on them, body aches, neck feels swollen. She started with it yesterday. She has been taking flonase, claritin, Zyrtec, Ibuprofen. Current Outpatient Medications on File Prior to Visit Medication Sig Dispense Refill [DISCONTINUED] amoxicillin-clavulanate (Augmentin) 875-125 MG tablet Take 875 mg by mouth in the morning and 875 mg before bedtime. [DISCONTINUED] promethazine-dextromethorphan (Phenergan-DM) 6.25-15 MG/5ML syrup Take 5 mL every 4 hours by oral route as needed for 5 days, for for cough. Maximum 30ml/24hours.. cetirizine (ZyrTEC) 10 MG tablet Take 10 mg by mouth at bedtime fluticasone (Flonase) 50 MCG/ACT nasal spray Administer 1 spray into each nostril Daily Shake gently. Before first use, prime pump. After use, clean tip and replace cap. Multiple Vitamin (multivitamin) capsule Take 1 capsule by mouth Daily [id number] 60-15-400 MG tablet Take 1 tablet by mouth every 6 (six) hours if needed (Cough) 28 tablet 0 [DISCONTINUED] Misc Natural Products (Para-Rory) capsule Take 1 capsule by mouth in the morning. No current facility-administered medications on file prior to visit. I have reviewed and reconciled the history and medication list with the patient today. No Known Allergies Social History Tobacco Use Smoking status: Never Smokeless tobacco: Never Vaping Use Vaping status: Never Used Substance Use Topics Alcohol use: Not Currently No family history on file. History reviewed. No pertinent past medical history. Past Surgical History: Procedure Laterality Date BREAST BIOPSY Left 12/15/2023 Visit Vitals BP 132/78 Pulse 110 Temp 100.2 F Resp 16 Ht 5' 1 Wt 160 lb 6.4 oz SpO2 98% BMI 30.31 kg/m Smoking Status Never BSA 1.77 m Review of Systems Constitutional: Positive for fatigue. Negative for chills and fever. HENT: Positive for congestion, ear pain, postnasal drip, rhinorrhea, sinus pressure, sinus pain and sore throat. Respiratory: Negative for cough, shortness of breath and wheezing. Cardiovascular: Negative for chest pain, palpitations and leg swelling. Gastrointestinal: Negative for abdominal pain, constipation, diarrhea, nausea and vomiting. Musculoskeletal: Positive for myalgias. Objective Physical Exam Constitutional: General: She is not in acute distress. Appearance: She is well-developed. She is obese. She is ill-appearing (Mildly). HENT: Head: Normocephalic and atraumatic. Right Ear: Ear canal normal. Tympanic membrane is erythematous (Mild) and retracted. Left Ear: Ear canal normal. Tympanic membrane is erythematous (Moderate) and retracted. Nose: Congestion present. Mouth/Throat: Mouth: Mucous membranes are moist. Pharynx: Posterior oropharyngeal erythema (Marked) present. Tonsils: Tonsillar exudate present. 2+ on the right. 2+ on the left. Eyes: General: No scleral icterus. Conjunctiva/sclera: Conjunctivae normal. Cardiovascular: Rate and Rhythm: Regular rhythm. Tachycardia present. Heart sounds: Normal heart sounds. No murmur heard. Pulmonary: Effort: Pulmonary effort is normal. No respiratory distress. Breath sounds: Normal breath sounds. No wheezing, rhonchi or rales. Lymphadenopathy: Cervical: Cervical adenopathy (Submandibular) present. Skin: General: Skin is warm and dry. Neurological: General: No focal deficit present. Mental Status: She is alert and oriented to person, place, and time. Psychiatric: Mood and Affect: Mood normal. Behavior: Behavior normal. Assessment/Plan Diagnoses and all orders for this visit: Sore throat - STREP DNA PROBE Strep test was positive today. Encounter for screening mammogram for malignant neoplasm of breast - Bilateral screening mammogram with tomosynthesis; Future Provided patient with an order for an updated Mammogram. If results are negative/normal, will plan to continue with routine yearly screenings. Screening for malignant neoplasm of cervix - Ambulatory referral to Obstetrics / Gynecology; Future Provided pt with referral to [facility] for routine Woman's Wellness exam. Encouraged routine PAP/Pelvic Exams. Strep throat - amoxicillin-clavulanate (Augmentin) 875-125 MG tablet; Take 1 tablet (875 mg) by mouth in the morning and 1 tablet (875 mg) in the evening. Take with meals. Do all this for 10 days.y Strep test was positive today. Patient is to begin taking the antibiotic today as prescribed. Patient is to take the whole prescription even if there is an improvement in symptoms. Patient is considered contagious x 48 hours after starting the antibiotic. Patient is to avoid sharing food or drinks and is to wash hands frequently. Cough into elbow. Encouraged patient to drink plenty of water, and get plenty of rest. Patient is to gargle with salt water or mouthwash of choice a few times a day. Can take Tylenol/Motrin for discomfort. Can use cough drops, chloraseptic sprays prn. Warm tea with honey can help to soothe the throat. Follow up in one week if no improvement. Follow up for Wellness. documented in this encounter [facility] Evaluation note 04-22-2022 Note Date & Type Note Facility 11-29-2021 [...] treatment plan. Patient left in stable condition. [employer] [facility] Other Evaluation note 08-07-2021 Note Date & [...] Patient care instructions given in writting by [facility] At Home document. [employer] [facility] [employer] Other Evaluation note 06-01-2021 Note Date & [...] verbalized understanding and agrees with treatment plan [employer] [facility] Other Evaluation note Note Date & Type Note Facility Evaluation note Diagnosis Strep throat- Primary Streptococcal sore throat Sore throat Acute pharyngitis Encounter for screening mammogram for malignant neoplasm of breast Screening for malignant neoplasm of cervix Screening for malignant neoplasm of the cervix documented in this encounter [facility] History general Narrative - Reported Note Date & Type Note Facility History general Narrative - Reported Type Surgical History x1 Hospitalization History see above [facility] Other History general Narrative - Reported Note Date & Type Note Facility History general Narrative - Reported Type Surgical History x1 Surgical History wisdom teeth Surgical History lt shoulder Hospitalization History see above [facility] Other Summary Purpose Family History No Family History Records FoundNo Family History Records Found Advance Directives No Advanced Directives Records FoundNo Advanced Directives Records Found Additional Source Comments INFORMATION SOURCE (unrecogn ized section and content) DATE CREATED AUTHOR 02/23/2021 [facility] DATE CREATED AUTHOR AUTHOR'S ORGANIZ ATION 12/23/2024 [facility] EPIC REASON FOR VISIT (unrecogniz ed section and content) TOOTH PAIN#2 RED JEEP, HOARS ENESS, SORE THROAT, EAR PAIN, CONGESTIONBURGUNDY JEEP, COUGH, CONGESTION, SON POSTIVIE FOR FLUE Care Teams (unrecognized sec tion and content) Cylinder Block Mechanic Relationship Specialty Start Date End Date Filemon Najera MD [address] [facility] [address] [place] [address] PCP - General Internal Medicine 12/16/22 FOR RECORDS PERTAINING TO PATIENTS WHO ARE [...] BE BASED ON THE PRIMARY CLINICAL RECORDS. [employer] [facility]. provides no warranty or guarantee of the accuracy or completeness of information in this document.
== END 2025-01-03 15:51 | disposition home or self-care (01) ==
LOC: MAMMO 15:50
PROVIDERS: PCP Physician Assistant; Visit Provider Physician Assistant
DX: Z12.31 Encounter for screening mammogram for malignant neoplasm of breast (principal)
CPT/HCPCS: 77063; 77067